=== PATIENT | female | born 1975 | race American Indian/Alaskan Native ===

== ENCOUNTER 2017-03-18 06:03 | Day surgery (SDC) | payer OTHER ==
[2017-03-18] MEDS ORDERED: WATER FOR IRRIG STERILE IR ONE (07:17)
[2017-03-18] MEDS ORDERED: DIPRIVAN 10 MG/ML IV ONE ×2 (07:33)
[2017-03-18] MEDS ORDERED: XYLOCAINE 1% 20 mL ONE (07:34)
--- NOTE | 2017-03-18 07:42 | Anesthesia Consultation ---
Anesthesia Consult and Med Hx Date of service: 03/18/17 - Airway Anesthetic Teeth Evaluation: Poor (bottom), Edentulous (upper) ROM Head & Neck: Adequate Mental/Hyoid Distance: Adequate Mallampati Class: Class III Intubation Access Assessment: Possibly Difficult - Pulmonary Exam CTA: Yes - Cardiac Exam Cardiac Exam: RRR - Pre-Operative Health Status ASA Pre-Surgery Classification: ASA3 Proposed Anesthetic Plan: MAC - Cardiovascular System Hx Hypertension: Yes - Gastrointestinal Hx Gastroesophageal Reflux Disease: Yes - Additional Comments Anesthesia Medical History Comments: arthiritis, right knee pain
--- NOTE | 2017-03-18 07:43 | Anesthesia Day of Surgery ---
Anesthesia Day of Surgery - Day of Surgery Patient Examined: Yes Patient H&P Reviewed: Yes Patient is NPO: Yes
[2017-03-18] MEDS ORDERED: NACL 0.9% 1000 ML 1,000 ML IV SCH (08:00)
[2017-03-18] MEDS ORDERED: XYLOCAINE MPF 2% ONE (08:00)
--- NOTE | 2017-03-18 08:00 | Discharge Summary ---
Providers - Providers Attending physician: ASTER FRANKEL Primary care physician: MADIHA NAVAS Hospitalization Condition: Good Hospital course: 41 y.o. F with hx of lap gastric band with removal and "plication in [address] Martinez presented to endoscopy for EGD. She tolerated the procedure. She was discharged the same day. Disposition: - TO HOME OR SELFCARE Core Measure Documentation - Palliative Care Palliative Care/ Comfort Measures: Not Applicable - Core Measures Any of the following diagnoses?: none Exam - Physical Exam Narrative exam: A+Ox3 Abd: soft, nontender. no rebound no guarding. - Constitutional Vitals: Temp Pulse Resp BP Pulse Ox 98.1 F 83 19 155/84 96 03/18/17 07:14 03/18/17 07:14 03/18/17 07:14 03/18/17 07:14 03/18/17 07:14 Plan Activity: no restrictions Additional Instructions: follow up in office to discuss results Follow up with: MADIHA NAVAS MD [Primary Care Provider] - 7 Days
--- NOTE | 2017-03-18 08:19 | Operative Report ---
Operative Report Operative Report: OPERATIVE REPORT - EGD DATE 03/18/17 SURGERY: Upper endoscopy. SURGEON: Dr. Ellison CASTINGS TRIMMER: Yeni Boles D.O PRE OP DX:hx of gastric plication POST OP DX: same TYPE OF ANESTHESIA: MAC. ESTIMATED BLOOD LOSS: None. COMPLICATIONS: None. SPECIMENS REMOVED: None. FINDINGS: 1. proximal stomach dilated with distal portion possible plicated. INDICATIONS:INDICATION FOR PROCEDURE: Patient is a 41year-old female with a long history of morbid obesity. She had a lap gastric band placed previously then removed in 2005. At the time the band was removed she also had a "plication " per pt by Dr. Martinez. She has a hx of GERD as well. PROCEDURE DETAILS: After consent was reviewed, patient was taken back to the operating room where patient was placed in the left lateral decubitus position and a bite block was placed in the mouth. After a time-out was called, MAC anesthesia was initiated. I then passed the endoscope into her oropharynx, into her esophagus, visualized the entire esophagus, which was all within normal limits. I then visualized the stomach which appeared to be surgically narrowed in the body to the antrum. The first portion of the duodenum and there were no abnormalities I could clearly visualize. I could not retroflex due to narrowing. I then desufflated the stomach and removed the endoscope. Patient tolerated procedure well and was transferred to recovery room in good and stable condition.
[2017-03-18 08:30] VITALS: BP 137/88
== END 2017-03-18 06:04 | disposition home or self-care (01) ==
LOC: GIO 06:03
PROVIDERS: ATTEND Specialist
DX: K31.89 Other diseases of stomach and duodenum (principal); K21.9 Gastro-esophageal reflux disease without esophagitis; I10 Essential (primary) hypertension; M19.90 Unspecified osteoarthritis, unspecified site; Z98.84 Bariatric surgery status
CPT/HCPCS: 43235; J2704; J7030

== ENCOUNTER 2017-03-24 13:43 | Outpatient (CLI) | payer OTHER ==
--- NOTE | 2017-03-24 15:52 | Fluoroscopy Report ---
FLUOROSCOPY UPPER GI WITH AIR AND KUB INDICATION: Abdominal pain. Past slippage and removal of lap band. COMPARISON: None similar at this institution. FINDINGS: Upper GI exam performed. Patient swallowed thick and thin barium without any difficulty and tolerated effervescent granules well. [employer] radiograph demonstrates nonobstructive bowel gas pattern. Few small pelvic phleboliths. Esophagus is normal in course and caliber. Normal peristalsis and mucosal pattern, to the extent assessed. No demonstrable gastroesophageal reflux, though a small hiatal hernia not excluded. Stomach appears somewhat folded upon itself on the upright views. An approximately 2 cm smooth keyhole like impression though persists along the greater curvature distally on the supine/oblique views, not excluded extrinsic. Normal duodenal bulb and appearance of the C-loop. CONCLUSION: 1. Approximately 2 cm smooth impression along the distal stomach/greater curvature persists on multiple images. CT may help further characterize, if so appropriate. 2. Few other findings, as above. Thank you for the opportunity to participate in this patient's care.
== END 2017-03-24 13:44 | disposition home or self-care (01) ==
LOC: FLUORO 13:43
PROVIDERS: ATTEND Specialist
DX: R10.30 Lower abdominal pain, unspecified (principal); I87.8 Other specified disorders of veins
CPT/HCPCS: 74247

== ENCOUNTER → 2017-05-16 | Outpatient (CLI) | payer OTHER | LOC: SLR 11:00 | PROVIDERS: ATTEND Otolaryngology | DX: G47.30 Sleep apnea, unspecified (principal) | CPT/HCPCS: G0399 ==